=== PATIENT | female | born 1985 | race Caucasian/White ===

== ENCOUNTER → 2017-03-11 | Outpatient (CLI) | payer BC, OTHER ==
[~2017-03-11] MED LIST: PRENTAB26 PO
[2017-03-11 17:43] LABS: URINE APPEARANCE CLEAR (CLEAR); URINE BILIRUBIN NEG (NEG); URINE COLOR YELLOW; URINE EPITHELIAL CELL AUTO >30 /lpf (0-5); URINE NITRITE NEG (NEG); URINE SPECIFIC GRAVITY 1.024 (1.000-1.030); UROBILINOGEN NEG (NEG)
[2017-03-11 17:46] LABS: MANUAL MICROSCOPIC REQUIRED? NO; REVIEW REQ? NO
== END | disposition home or self-care (01) ==
LOC: C.LABSPEC 16:47
PROVIDERS: ATTEND Obstetrics & Gynecology
DX: Z34.91 Encounter for supervision of normal pregnancy, unspecified, first trimester (principal)

== ENCOUNTER → 2017-03-19 | Outpatient (CLI) | payer BC ==
[2017-03-22 02:55] LABS: CHLAMYDIA TRACH RNA*** NOT DETECTED (NOT DETECTED); GC (NEIS GONORRHOEAE)RNA** NOT DETECTED (NOT DETECTED)
== END | disposition home or self-care (01) ==
LOC: C.LABSPEC 13:41
PROVIDERS: ATTEND Obstetrics & Gynecology
DX: Z34.91 Encounter for supervision of normal pregnancy, unspecified, first trimester (principal)

== ENCOUNTER → 2017-09-17 | Outpatient (CLI) | payer OTHER | END | disposition home or self-care (01) | LOC: C.LABSPEC 16:02 | PROVIDERS: ATTEND Obstetrics & Gynecology | DX: Z34.83 Encounter for supervision of other normal pregnancy, third trimester (principal) ==

== ENCOUNTER 2017-10-19 11:00 | Inpatient (IN) | payer OTHER ==
[~2017-10-19] VITALS: Ht 170.2 cm; Wt 90.5 kg
[2017-10-19] MEDS ORDERED: LACTATED RINGER'S 1000ML 1,000 ML IV SCH (11:49)
[2017-10-19] MEDS ORDERED: LACTATED RINGER'S 1000ML 1,000 ML IV PRN (11:49)
[2017-10-19 12:05] VITALS: Ht 170.2 cm; Wt 90.5 kg
[2017-10-19 12:34] LABS: HEMATOCRIT 37.7 % (37-47); MEAN CELL VOLUME 85.3 fL (80-100); MEAN CORPUSCULAR HEMOGLOBIN 29.4 pg (25-34); MEAN CORPUSCULAR HGB CONC 34.5 g/dl (32-36); MEAN PLATELET VOLUME 10.9 fL (7.4-10.4); PLATELET COUNT 173 K/uL (130-400); RED CELL DISTRIBUTION WIDTH CV 15.4 % (11.5-14.5); RED CELL DISTRIBUTION WIDTH SD 47.6 fL (36.4-46.3)
[2017-10-19] MEDS ORDERED: LACTATED RINGER'S 1000ML 500 ML IV PRN (16:50)
[2017-10-19] MEDS ORDERED: OXYTOCIN 30 UNITS/500ML NSS IV ONE (16:54)
[2017-10-19] MEDS ORDERED: OXYTOCIN 30 UNITS/500ML NSS IV PRN ×2 (17:00→17:15)
[2017-10-19] MEDS ORDERED: BENZOCAINE 20% AER SPR 82.5 GM CAN EXT PRN (17:15)
[2017-10-19] MEDS ORDERED: LANOLIN OINT EXT PRN (17:15)
[2017-10-19] MEDS ORDERED: HYDROCORTISONE ACETATE 25 MG SUPP PR PRN (17:15)
[2017-10-19] MEDS ORDERED: DIPHTHERIA/TETANUS/PERTUSSIS 0.5 ML SYR/VIAL IM. ONE (17:15)
[2017-10-19] MEDS ORDERED: SUPERCREAM 0.870 % 15GM JAR EXT PRN (17:15)
[2017-10-19] MEDS ORDERED: ACETAMINOPHEN 325 MG TAB PO PRN (17:15)
--- NOTE | 2017-10-19 17:42 | DELIVERY SUMMARY ---
DATE OF OPERATION: 10/19/2017 FINDINGS: Viable female with Apgars of 8 and 9. Meconium stained fluid. Nuchal cord x3 reduced on the perineum, small superficial second degree laceration. Placenta delivered spontaneously. Laceration repaired with 4-0 Vicryl. ESTIMATED BLOOD LOSS: 300 mL. LABOR NOTE: The patient is a 32-year-old 2, para 1 with an EDC of 13 October at 40+ weeks gestational age who presented with a complaint of contractions. Patient states contractions began at approximately 0630 hours on day of admission and increased in intensity. Patient denied rupture of membranes or vaginal bleeding. Patient has had a benign course. Her blood type is A positive and antibody negative, rubella immune, hepatitis B negative. She declined to quad screen. She had a normal 1-hour Glucola x2 and a negative third trimester beta strep culture. Upon admission, patient was 4 cm dilated, 50% effaced and -2 station. Artificial rupture of membranes for meconium stained fluid. Tracing was category 1. Within the next 4 hours, patient progressed to 8 cm and then arrested at 8 cm for an hour and half. Initial plans were to place intrathecal with Pitocin but then patient progressed to full dilatation and began her second stage. She pushed for 5 minutes delivering the vertex. Nuchal cord x3 reduced. Remainder of the baby was delivered. Good vigorous cry, terminating meconium resuscitation. Cord was clamped and cut. Cord gases and cord blood samples obtained. Placenta was delivered spontaneously. Second degree laceration repaired with interrupted 4-0 Vicryl sutures. Estimated blood loss 300 mL. Sponge and needle count was correct. I attest to the content of the Intraoperative Record and any orders documented therein. Any exception s are noted below.
[2017-10-19] MEDS: IBUPROFEN 600 MG TAB PO PRN (19:18)
[2017-10-19 21:00] VITALS: BP 120/82; PULSE 87; TEMP 36.9; O2SAT 97
[2017-10-19] MEDS: DOCUSATE SODIUM 100 MG CAP PO SCH (21:00)
[2017-10-19 23:20] VITALS: BP 103/68; PULSE 72; TEMP 36.9; O2SAT 99
[2017-10-20 03:40] VITALS: BP 115/77; PULSE 75; TEMP 36.8; O2SAT 99
[2017-10-20] MEDS: IBUPROFEN 600 MG TAB PO PRN (03:57)
[2017-10-20 07:02] LABS: HEMATOCRIT 33.7 % (37-47); HEMOGLOBIN 11.5 g/dL (12.0-16.0)
[2017-10-20] MEDS ORDERED: FERROUS SULFATE 325 MG TAB PO SCH (08:00)
[2017-10-20] MEDS ORDERED: PRENATAL VITAMIN TAB PO SCH (08:00)
[2017-10-20 08:15] VITALS: BP 121/81; PULSE 79; TEMP 36.8
--- NOTE | 2017-10-20 08:39 | Progress Note ---
Subjective October 20, 2017. Subjective conversation w/ patient, physical exam Ambulation: ambulating normally Diet Tolerance: Regular Diet Feeding Type: Breast Feeding Objective Vital Signs Date Time Temp Pulse Resp B/P (MAP) Pulse Ox O2 Delivery O2 Flow Rate FiO2 10/20/17 03:40 36.8 75 16 115/77 (90) 99 Room Air 10/19/17 23:20 36.9 72 16 103/68 (80) 99 Room Air 10/19/17 23:20 99 Room Air 10/19/17 21:00 97 Room Air 10/19/17 21:00 36.9 87 16 120/82 (95) 97 Room Air Physical Exam General Appearance: WELL-APPEARING, NO APPARENT DISTRESS Fundus: Firm, Non-Tender Extremities: no calf tenderness Laboratory Results Last 24 Hours Test 10/19/17 12:02 10/20/17 06:48 White Blood Count 11.80 K/uL Red Blood Count 4.42 M/uL Hemoglobin 13.0 g/dL 11.5 g/dL Hematocrit 37.7 % 33.7 % Mean Corpuscular Volume 85.3 fL Mean Corpuscular Hemoglobin 29.4 pg Mean Corpuscular Hemoglobin Concent 34.5 g/dl RDW Standard Deviation 47.6 fL RDW Coefficient of Variation 15.4 % Platelet Count 173 K/uL Mean Platelet Volume 10.9 fL Assessment and Plan Post- Day#: 1 Continue Routine Care: - routine care - doing well
[2017-10-20 12:55] VITALS: BP 116/76; PULSE 94; TEMP 36.8; O2SAT 98
[2017-10-20] MEDS: DOCUSATE SODIUM 100 MG CAP PO SCH (13:54)
--- NOTE | 2017-10-20 14:44 | Discharge Instructions ---
Discharge Instructions Date of Service October 20, 2017. Admission Reason for Admission: Check Labor Discharge Discharge Diagnosis / Problem: same Discharge Goals Goal(s): Routine recovery after delivery Medications Continue Dispensed Medications: supercream, dermaplast Activity Recommendations Activity Limitations: as noted below . Instructions / Follow-Up Instructions / Follow-Up ACTIVITY RECOMMENDATIONS: * Gradual return to full activity over the next 2-3 weeks. * No lifting - nothing heavier than baby over the next 2-3 weeks. * Do not engage in vigorous exercise, sexual activity or sports until cleared by your physician. * Do not drive or operate any motorized equipment until cleared by your physician. * You may shower/bathe daily. MEDICATIONS: For discomfort or pain, you may use Acetaminophen (Tylenol), Ibuprofen (Advil), or Naproxen (Aleve) following the package directions. For constipation you may use Colace following the package directions. BREAST CARE: If you are not breast feeding: * Wear a supportive bra 24 hours a day for one to two weeks. * Avoid stimulating your breasts and nipples as much as possible during the first few weeks after delivery. * When taking a shower, have the warm water hit your back, not breasts. * When your breasts feel full, apply ice packs. Usually three to four times a day helps ease the discomfort. * Take a mild pain medication (Tylenol / Motrin) when you are uncomfortable. If breast feeding: * Use breast milk to lubricate nipples. Lansinoh cream may be used for sore nipples. You do not need to remove cream prior to breast feeding. If using a different brand of cream, check the label for directions regarding removal of cream prior to nursing. * Wear a supportive bra. * If having problems with breasts or breast feeding, call a service consultant or your health care provider. EPISIOTOMY CARE: After delivery, if you have an episiotomy (stitches), the following steps will ease discomfort and aid healing. * For the first 24 hours after delivery, place ice packs next to your episiotomy to help reduce swelling. * After the first 24 hour-period, sitz baths, either portable or in the tub, are suggested. A shower with a shower arm sprayed over the episiotomy may be comforting. * Liss care should be done after each voiding and bowel movement. Squirt warm water from a plastic bottle over the perineum (region of the body between the anus and urinary opening) and pat dry. * Use Dermoplast to ease discomfort. Shake container. [place] directly over the episiotomy. Place a Tucks on a clean sanitary pad next to your episiotomy. SPECIAL CARE INSTRUCTIONS: When you are discharged from the hospital, it is important for you to follow the instructions listed below: * During the first week at home, you should be able to care for yourself and your baby. In addition, the usual light household activities are encouraged. * Limit your activities to the way you feel. Do not try to clean the house or move furniture. Be sensible. * If you actively engage in sports and have done so up until the time of your delivery, you may resume these activities as soon as you feel able. This may take up to one month or even longer. Use good judgment. * Continue to take your vitamins for at least six weeks after the of your baby. * Your diet need not be limited unless you were on a special diet before your delivery. Breast-feeding mothers need around 2500 calories per day and at least 64-80 ounces of fluid per day (8 to 10 glasses). * You should eat foods from the four major food groups. Crash diets or fad diets are to be avoided. Eating lean meats, fresh fruits and vegetables, low-fat dairy products, high fiber foods and a regular exercise program, will help you get back to your pre- weight without putting your health at risk. * Constipation is sometimes a problem after delivery. Take a mild laxative as needed. If breast feeding, Milk of Magnesia is acceptable to use. You may use a suppository or Fleets enema if no episiotomy. * A daily shower or tub bath is suggested. Be sure to thoroughly and gently dry the perineum. * A bloody vaginal discharge will usually continue until around four weeks post . A small amount of bleeding may continue for as long as six weeks. Vaginal discharge changes from the bright red bleeding after delivery to pink then brownish and finally yellowish-pink before becoming white and disappearing. * Bleeding may increase with activity. Your first period may come in 4-8 weeks. If you are breast feeding, your period may be delayed even longer. * Damar (sex) can begin whenever both you and your partner feel comfortable and do not have any form of genital infection. It is recommended that you wait at least six weeks for internal and external healing to occur. If you have questions, please talk to your health care practitioner. A condom should be used to prevent infection and . * Foreplay, gentle intercourse and lubrication is very important the first several times to prevent pain. A water-based lubricant such as K-Y jelly or Astroglide may be used. * If you have RH negative blood and your baby is RH positive, you will receive RHOGAM by injection prior to discharge. The nurse will give you a card to keep with you that has the date and place that you received RHOGAM after delivery. * During your care, you had a Rubella screen done to check for the presence of rubella antibodies in your blood. If your test was negative, you will receive a Rubella vaccine prior to discharge. This vaccine may cause a fever, soreness at the injection site and flu-like symptoms. If these symptoms persist, notify your health care practitioner. is not advised for one month after a Rubella vaccine. * Verbalizes understanding of car seat law as reviewed with patient nursing. * Car Seat hand-out given and reviewed with patient by nursing. * Shaken baby information reviewed with patient by nursing. Call you doctor if: * Heavy bleeding (saturating several pads an hour) or passing clots the size of your fist. * A fever >101 degrees F (38.3 degrees C) on two occasions four hours apart and /or chills. * Unusual pain in the pelvic or vaginal areas. * "Baby Blues" lasting longer than two weeks. If you have any questions or concerns, call your health care practitioner at . FOLLOW UP VISIT: * Please call the office at to schedule a 6 week examination. It is important you keep this appointment. It is important for you to make arrangements for either yearly or twice yearly check-ups thereafter. Current Hospital Diet Patient's current hospital diet: Regular OB Diet Discharge Diet Recommended Diet: Regular Diet Pending Studies Studies pending at discharge: no Medical Emergencies . Who to Call and When: Medical Emergencies: If at any time you feel your situation is an emergency, please call 911 immediately. . Non-Emergent Contact Non-Emergency issues call your: Regional Environmental Manager Call Non-Emergent contact if: you have a fever, temperature is above 100.5 . . "Provider Documentation" section prepared by Linus Elliott. .
[2017-10-20 16:42] VITALS: BP 117/75; PULSE 80; TEMP 36.9; O2SAT 99
[2017-10-20 17:55] VITALS: BP_DIAS 75; PULSE 80; TEMP 36.9
[2017-10-20] MEDS ORDERED: BISACODYL 5 MG TABEC PO SCH (20:00)
== END 2017-10-20 18:10 | disposition home or self-care (01) | DRG 775 ==
LOC: C.OPB 11:00 → C.LD 11:00 → C.OPB 11:50 → C.LD 11:50 → C.OBG 20:51
PROVIDERS: ADMIT Obstetrics & Gynecology; ATTEND Obstetrics & Gynecology
PROC: 10E0XZZ Delivery of Products of Conception, External Approach (ICD-10-PCS; principal; 2017-10-19)
PROC: 0KQM0ZZ Repair Perineum Muscle, Open Approach (ICD-10-PCS; principal; 2017-10-19)
DX: O69.81X0 Labor and delivery complicated by cord around neck, without compression, not applicable or unspecified (principal); Z3A.40 40 weeks gestation of pregnancy; Z37.0 Single live birth; O77.0 Labor and delivery complicated by meconium in amniotic fluid; O70.1 Second degree perineal laceration during delivery